=== PATIENT | female | born 1980 | race Asian ===

== ENCOUNTER → 2024-06-11 | Outpatient (CLI) | payer MEDICAID, SELFPAY ==
[2024-06-10 08:42] LABS: Basophils % (Auto) 0 % (0-2.5); Eosinophils # (Auto) 0.1 Thou/mm3 (0.0-0.5); Eosinophils % (Auto) 1 % (0-10); Hematocrit 40.2 % (36.0-46.0); Hemoglobin 12.7 g/dL (12.0-16.0); Immature Granulocytes % (Auto) 0 % (0-0); Immature Granulocytes Auto 0.02 Thou/mm3 (0.00-0.00); Lymphocytes # (Auto) 2.9 Thou/mm3 (1.0-4.8); Lymphocytes % (Auto) 26 % (10-50); Mean Corpuscular HGB Conc 31.6 g/dl (31.0-37.0); Mean Corpuscular Volume 82 fL (80-100); Monocytes # (Auto) 0.7 Thou/mm3 (0.0-0.8); Monocytes % (Auto) 6 % (0-12); Neutrophils # (Auto) 7.4 Thou/mm3 (1.8-7.7); Neutrophils % (Auto) 66 % (37-80); Nucleated Red Blood Cell % 0 /100 WBC (0); Platelet Count 337 Thou/mm3 (140-440); RDW Standard Deviation 40.8 fL (36.4-46.3); Red Blood Count 4.88 Miln/mm3 (4.00-5.20); White Blood Count 11.2 Thou/mm3 (3.6-11.0)
[2024-06-10 08:52] LABS: HCG,Qualitative Serum Negative
[2024-06-10 09:40] LABS: INR 0.9 (0.9-1.3); Partial Thromboplastin Time 24.8 Seconds (22.0-36.0); Prothrombin Time 10.1 Seconds (9.0-12.2)
--- NOTE | 2024-06-11 09:30 | XR_ITS ---
Examinations: Ultrasound-guided percutaneous breast biopsy, right breast 3:00 nodule Right breast sonography limited INDICATIONS: Right breast sonogram April 16, 2024 BI-RADS 4 suspicious mass 3:00 position right breast. Exam date and time: June 11, 2024 0956 hours. Informed consent provided. Technique: A timeout was completed verifying correct patient, procedure, site, positioning, and special equipment if applicable Informed consent provided. The patient was placed in a supine position for the breast biopsy. Sonographic images of the breast were performed for localization of the suspicious nodule The patient's breast was prepped and draped in sterile fashion. Maximum sterile barrier technique, hand hygiene, ultrasound sterile technique 1% lidocaine was used to anesthetize the skin and breast adjacent to the suspicious nodule. Utilizing ultrasonographic guidance, 8 core biopsies were obtained of the suspicious nodule utilizing an 18-gauge BioPince needle. The specimens appears satisfactory. US guided breast biopsy marker placement. Estimated blood loss 3 cc. The patient tolerated the procedure well and there were no complications. Impression: Successful ultrasound-guided percutaneous breast biopsy, right breast 3:00 nodule. Ultrasound guided breast biopsy marker placement.
== END | disposition home or self-care (01) ==
PROVIDERS: Radiology Diagnostic Radiology; PCP Physician Assistant; Referring Provider Physician Assistant; Visit Provider Physician Assistant
DX: D24.1 Benign neoplasm of right breast (principal); N60.11 Diffuse cystic mastopathy of right breast; Z01.812 Encounter for preprocedural laboratory examination
CPT/HCPCS: 19083; 36415; 84703; 85025; 85610; 85730; A4648

== ENCOUNTER 2024-12-10 12:27 | Emergency (ER) | payer MEDICAID, SELFPAY ==
[2024-12-10 12:28] VITALS: BMI 35.5
[2024-12-10 13:15] VITALS: BP 156/96; PULSE 94; RESP 20; TEMP 36.9; O2SAT 98
--- NOTE | 2024-12-10 13:19 | XR_ITS ---
Examination: CT soft tissue neck, without intravenous contrast. 2-D coronal reconstructions. 2-D sagittal reconstructions. Date and time of exam :2024 1328 hours INDICATIONS: Patient states something stuck in the throat 3 days. CTDI: vol (mGy):15.1 DLP: (mGycm):8 Technique: 1.25 mm axial sections of the neck of the obtained. Coronal and sagittal reconstructions have been obtained. Low dose protocols were performed. One or more of the following dose reduction techniques were used; automated exposure control, adjustment of the mA and/or KV according to patient size, use of iterative reconstruction technique. Findings: Symmetrical nasopharynx oropharynx No pathologic carotid triangle lymphadenopathy The larynx appears normal Symmetrical thyroid lobes No opaque foreign body in the esophagus or oropharyngeal airway depicted Normal epiglottis Adequate alignment cervical vertebral bodies IMPRESSION: No opaque foreign body seen
--- NOTE | 2024-12-10 13:21 | PD.EDSKIN ---
ED Skin Abcess FB-RME/HPI General Chief complaint: Dental/Oral/Throat Stated complaint: PT SAYS SHE FEELS STEM OF A PEPPER IN HER THROAT Time Seen by Provider: 12/10/24 12:38 Source: patient Arrival date/time: 12/10/24 12:27 44-year-old female with no known medical issues presents to the emergency room with a chief complaint of feeling of foreign body stuck in her throat. Patient states she ate chili peppers on Sunday and since then felt like there is a piece of a stem stuck in her throat. Mode of arrival: ambulatory Limitations: no limitations Related Data Home Medications ?Medication ?Instructions ?Recorded ?Confirmed albuterol sulfate 90 mcg/actuation 2 puff inhalation Q4H PRN 02/17/21 02/22/21 aerosol inhaler Bronchodilation promethazine-DM 6.25 mg-15 mg/5 mL 5 ml PO TID 02/17/21 02/22/21 oral syrup Previous Rx's ?Medication ?Instructions ?Recorded cyclobenzaprine 10 mg tablet 10 mg PO TID #14 tabs 05/02/22 meloxicam 7.5 mg tablet 7.5 mg PO QDAY #14 tabs 05/02/22 Allergies Allergy/AdvReac Type Severity Reaction Status Date / Time Penicillins Allergy Unknown Verified 12/10/24 12:31 ED Exam General Limitations: Present no limitations Course Quality Measures none Orders Category Date Time Status CT soft tissue neck wo con Stat Exams 12/10/24 13:19 Completed Vital Signs Vital signs: Vital Signs Temperature 98.5 F 12/10/24 13:15 Pulse Rate 94 12/10/24 13:15 Respiratory Rate 20 12/10/24 13:15 Blood Pressure 156/96 H 12/10/24 13:15 Pulse Oximetry (%) 98 12/10/24 13:15 Oxygen Delivery Method Room Air 12/10/24 13:15 Skin / Abscess / Foreign Body MDM Narrative MDM Narrative:: 44-year-old female with no known medical issues presents to the emergency room with a chief complaint of feeling of foreign body stuck in her throat. Patient states she ate chili peppers on Sunday and since then felt like there is a piece of a stem stuck in her throat. Patient is hemodynamically stable and in no apparent distress Physical examination shows clear bilateral lung sounds there is no wheezing stridor or any abnormal breath sounds. The patient does not have any respiratory distress or difficulty swallowing. A CT of the soft tissue neck was completed and did not find any foreign body Patient was discharged and educated to follow-up with her primary care provider and return to the emergency room for any evidence of worsening signs or symptoms Patient data External records reviewed:: [facility] previous records Clinical information provided by:: patient Social determinants that could affect healthcare access:: none Patient has the following chronic illnesses:: No chronic illness How is presenting disease/condition affected by chronic disease/condition?: no chronic disease Evaluation data The following diagnostics were reviewed and interpreted by me:: lab results and radiology exam(s) Lab and/or radiology exams considered but not ordered:: Labs radiology exams considered and ordered Interpretation Summary: CT soft tissue neck-Findings: Symmetrical nasopharynx oropharynx No pathologic carotid triangle lymphadenopathy The larynx appears normal Symmetrical thyroid lobes No opaque foreign body in the esophagus or oropharyngeal airway depicted Normal epiglottis Adequate alignment cervical vertebral bodies IMPRESSION: No opaque foreign body seen Medications / Prescriptions Medications or Prescriptions considered but not ordered:: N/A Medication administrations:: No medication given Consultations Consultation(s) initiated? (list below): No Diagnosis Skin/Abscess Differential Diagnosis: other (Foreign body in neck) Most likely diagnosis given after review of the tests above:: Foreign body in neck Admission Indicated Admission indicated?: not indicated Admission Request Was there a request for admission?: No Disposition Plan Disposition Plan: Discharge Discharge Attestation Discharge Attestation: The patient and all family members were given an opportunity to ask questions and understood the discharge instructions. Discharge instructions specifically effects, indications for sooner follow up or return to the emergency department, and the expected course of current diagnosis. Patient condition: Stable Discharge Plan Plan Patient Disposition: HOME (Self Care) Discharge Disposition comment: Stable Prescriptions/Referrals Prescriptions/Med Rec: No Action promethazine-DM 6.25-15 mg/5 mL syrup 5 ml PO TID albuterol sulfate 90 mcg/actuation HFA aerosol inhaler 2 puff INHALATION Q4H PRN (Reason: Bronchodilation) meloxicam 7.5 mg tablet 7.5 mg PO QDAY Qty: 14 0RF cyclobenzaprine 10 mg tablet 10 mg PO TID Qty: 14 0RF Problem List Clinical Impression: Foreign body of neck Patient/Caregiver Discharge Instructions Additional Instructions: Please follow-up with your primary care provider in the next [address] of your neck was completed and was negative for any foreign body For any evidence of worsening signs or symptoms return to the emergency room immediately Print Language: Mongolian Stand Alone Forms: Kami Award Info., Patient Portal Info Letter PA/ROLL [employer] SUPERVISOR Supervising Physician PA/[employer]LL [employer] SUPERVISOR Supervising Physician: Dr. Gibson
== END 2024-12-10 14:09 | disposition home or self-care (01) ==
LOC: SERX 14:24
PROVIDERS: Emergency Provider Emergency Medicine
DX: R09.A2 Foreign body sensation, throat (principal)
CPT/HCPCS: 70490; 99284

== ENCOUNTER → 2025-06-23 | Outpatient (CLI) | payer MEDICAID, SELFPAY ==
--- NOTE | 2025-06-23 13:30 | XR_ITS ---
Examination: Screening digital mammography, bilateral Computer aided detection 3-D breast Tomosynthesis, bilateral Date and time of exam: June 23, 2025, 1319 hours, compared to mammograms dating to June 23, 2022 Indication: Screening Technique: Nonmagnified MLO, CC views of the breasts to been obtained, reconstructed from 3-D Tomosynthesis images. R2 computer aided detection program utilized for evaluation of suspicious masses and/or abnormal calcifications. 3-D Tomosynthesis images obtained. Findings: Scattered areas of fibroglandular density. Stable 13 mm nodule inner right breast posterior depth with breast biopsy marker No interval suspicious masses Impression: BI-RADS category II: Benign Findings. Recommend 1 year follow-up mammogram.
== END | disposition home or self-care (01) ==
LOC: CDIM 13:13
PROVIDERS: Referring Provider Obstetrics & Gynecology; Visit Provider Obstetrics & Gynecology
DX: Z12.31 Encounter for screening mammogram for malignant neoplasm of breast (principal); R92.323 Mammographic fibroglandular density, bilateral breasts
CPT/HCPCS: 77063; 77067